=== PATIENT | male | born 1965 | race Two or more races ===

== ENCOUNTER 2019-03-26 16:21 | Emergency (ER) | payer OTHER ==
[~2019-03-26] VITALS: Ht 160 cm; Wt 82.1 kg
--- NOTE | 2019-03-26 16:45 | NUR ---
C/O EPIGASTRIC PAIN SINCE 12 NOON TODAY 02/12 PS, -N/V, -DIARRHEA. PT AAOX4, VSS. RR EVEN & UNLABORES. DENIES CP, SOB, DIZZINESS @ THIS TIME. AWAITING EVAL BY ERMD/PA & WILL CONT TO MONITOR.
[2019-03-26] MEDS ORDERED: MAG HYDROX/AL HYDROX/SIMETH 30 ML UDC PO ONE (17:00)
[2019-03-26] MEDS ORDERED: LIDOCAINE VISCOUS 2% UD 15 ML UDC MM ONE (17:00)
[2019-03-26] MEDS ORDERED: MAG HYDROX/AL HYDROX/SIMETH 30 ML UDC ONE (17:09)
[2019-03-26] MEDS ORDERED: LIDOCAINE VISCOUS 2% UD 15 ML UDC ONE (17:09)
--- NOTE | 2019-03-26 17:15 | NUR ---
MEDICATED PER ERMD ORDER. PT JASON WELL.
[2019-03-26 17:25] LABS: BASOPHILS % (AUTO) 0.3 % (0.0-2.0); EOSINOPHILS % (AUTO) 1.1 % (0.0-6.0); HEMATOCRIT 43 % (39-51); HEMOGLOBIN 14.8 g/dL (13.5-17.5); LYMPHOCYTES # (AUTO) 1.9 /CMM (0.8-4.8); LYMPHOCYTES % (AUTO) 19.3 % (20.0-44.0); MEAN CORPUSCULAR HGB CONC 35 g/dl (31.0-36.0); MEAN CORPUSCULAR VOLUME 84 fL (80-96); MONOCYTES # (AUTO) 0.9 /CMM (0.1-1.30); MONOCYTES % (AUTO) 8.7 % (2.0-12.0); NEUTROPHILS % (AUTO) 70.6 % (43.0-81.0); PLATELET COUNT (AUTO) 222 /CMM (150-450); WHITE BLOOD COUNT (AUTO) 9.9 K/uL (4.3-11.0)
[2019-03-26 17:32] LABS: CARBON DIOXIDE 26 mmol/L (21-32); CHLORIDE 103 mmol/L (98-107); CREATININE 0.9 mg/dL (0.6-1.3); GLUCOSE 105 mg/dL (74-106); SODIUM SERUM 139 mmol/L (136-145); UREA NITROGEN, BLOOD 24 mg/dL (7-18)
[2019-03-26 17:38] LABS: ALANINE AMINOTRANSFERASE 34 U/L (12-78); ALKALINE PHOSPHATASE 52 U/L (46-116); ASPARTATE AMINOTRANSFERASE 25 U/L (15-37); BILIRUBIN,DIRECT 0.1 mg/dL (0.0-0.2); BILIRUBIN,TOTAL 0.3 mg/dL (0.2-1.0); CALCIUM, SERUM 9.1 mg/dL (8.5-10.1); LIPASE 260 U/L (73-393); TOTAL PROTEIN, SERUM 7.7 g/dL (6.4-8.2)
[2019-03-26] MEDS ORDERED: IOHEXOL-300 100 ML VIAL IV ONE (18:57)
--- NOTE | 2019-03-26 19:55 | NUR ---
IV removed. Catheter intact and site benign. Pressure and 4x4 applied to site. No bleeding noted. Patient discharged to home in stable condition. Written and verbal after care instructions given. Patient verbalizes understanding of instruction. ambulatory with a steady gait noted. pt aaox4 no acute distress noted, resp even and unlabored. pt family members at bedside to take pt home.
[2019-03-26 19:56] VITALS: BP 139/76
== END 2019-03-26 19:57 | disposition home or self-care (01) ==
LOC: ER 16:25
DX: R10.13 Epigastric pain (principal)
CPT/HCPCS: 36415; 74177; 80048; 80076; 83690; 84484; 85025; 93005; 99284; Q9967

== ENCOUNTER 2022-02-01 20:15 | Emergency (ER) | payer OTHER ==
[~2022-02-01] VITALS: Ht 162.6 cm; Wt 83.9 kg
--- NOTE | 2022-02-01 20:44 | NUR ---
BIBSELF C/O R GROIN PAIN X1 YESTERDAY 02/12. AWAKE AND ALERT BREATHING EVEN AND UNLABORED. CHANGED INTO GOWN AND PLACED ON MONITOR AND V/S WNL.
[2022-02-01] MEDS ORDERED: DOCU-141 PO (21:38)
[2022-02-01] MEDS ORDERED: POLY17PO4 PO (21:38)
[2022-02-01] MEDS ORDERED: IBUP-1957 PO (21:38)
[2022-02-01] MEDS ORDERED: CYCL5TAB PO (21:38)
--- NOTE | 2022-02-01 21:46 | NUR ---
Patient discharged to home in stable condition. Written and verbal after care instructions given. Patient verbalizes understanding of instruction.
[2022-02-01 21:47] VITALS: BP 143/88
== END 2022-02-01 21:47 | disposition home or self-care (01) ==
LOC: ER 20:23
DX: R10.2 Pelvic and perineal pain (principal); Z79.899 Other long term (current) drug therapy

== ENCOUNTER 2022-07-21 23:08 | Emergency (ER) | payer OTHER ==
[~2022-07-21] VITALS: Ht 160 cm; Wt 86.2 kg
[~2022-07-21 23:08] MED LIST: CYCL5TAB PO; DOCU-141 PO; IBUP-1957 PO; POLY17PO4 PO
[2022-07-22] MEDS ORDERED: FAMOTIDINE/PF INJ 20 MG/2 ML VIAL IV ONE ×2 (00:55→01:00)
[2022-07-22] MEDS ORDERED: ONDANSETRON HCL/PF 4 MG/2 ML VIAL ONE (00:55)
[2022-07-22] MEDS ORDERED: ONDANSETRON HCL/PF - ER 4 MG/2 ML VIAL IV ONE (01:00)
--- NOTE | 2022-07-22 01:00 | NUR ---
ER [employer] AT BEDSIDE FOR BLOOD DRAW
--- NOTE | 2022-07-22 01:00 | NUR ---
EMT AT BEDSIDE FOR EKG
[2022-07-22 01:29] LABS: BASOPHILS % (AUTO) 0.4 % (0.0-2.0); EOSINOPHILS % (AUTO) 0.8 % (0.0-6.0); HEMATOCRIT 41 % (39-51); LYMPHOCYTES # (AUTO) 2.1 K/uL (0.8-4.8); LYMPHOCYTES % (AUTO) 16.9 % (20.0-44.0); MEAN CORPUSCULAR HGB CONC 34 g/dl (31.0-36.0); MEAN CORPUSCULAR VOLUME 82 fL (80-96); MONOCYTES # (AUTO) 1.1 K/uL (0.1-1.30); NEUTROPHILS % (AUTO) 72.9 % (43.0-81.0); PLATELET COUNT (AUTO) 266 K/uL (150-450); RED BLOOD CELL COUNT(AUTO) 5.01 MIL/uL (4.5-6.0); WHITE BLOOD COUNT (AUTO) 12.3 K/uL (4.3-11.0)
[2022-07-22 01:45] LABS: ALANINE AMINOTRANSFERASE 34 U/L (12-78); ALBUMIN 4.1 g/dL (3.4-5.0); ALKALINE PHOSPHATASE 51 U/L (46-116); ASPARTATE AMINOTRANSFERASE 28 U/L (15-37); BILIRUBIN,DIRECT 0.1 mg/dL (0.0-0.2); BILIRUBIN,TOTAL 0.7 mg/dL (0.2-1.0); CALCIUM, SERUM 9.2 mg/dL (8.5-10.1); CARBON DIOXIDE 26 mmol/L (21-32); CHLORIDE 101 mmol/L (98-107); CREATININE 1.1 mg/dL (0.6-1.3); GLUCOSE 110 mg/dL (74-106); POTASSIUM 4.2 mmol/L (3.5-5.1); SODIUM SERUM 136 mmol/L (136-145); UREA NITROGEN, BLOOD 21 mg/dL (7-18)
[2022-07-22] MEDS ORDERED: OMEP20CA15 PO (02:27)
[2022-07-22 02:44] VITALS: BP 119/68
--- NOTE | 2022-07-22 02:45 | NUR ---
PT IS MEDICALLY STABLE FOR D/C. IV removed. Catheter intact and site benign. Pressure and 4x4 applied to site. No bleeding noted.Patient discharged to home in stable condition. Written and verbal after care instructions given. Patient verbalizes understanding of instruction.
== END 2022-07-22 02:45 | disposition home or self-care (01) ==
LOC: ER 23:10
DX: R10.13 Epigastric pain (principal); R11.2 Nausea with vomiting, unspecified; Z79.899 Other long term (current) drug therapy
CPT/HCPCS: 99285; 96374; 71045; 96375; 93005; 85025; 80048; 83690; 80076; 36415; 84484; J3490; J2405